=== PATIENT | male | born 1980 | race Hispanic/Latino ===

== ENCOUNTER 2018-06-01 16:07 | Observation (INO) | payer OTHER ==
--- NOTE | 2018-06-01 16:18 | ED PDOC ---
HPI:STROKE - Time Time: 16:13 - Historian Historian: Patient - Chief Complaint Chief Complaint: Numbness, Slurred speech - Onset Date: 06/01/18 Time: 15:50 Onset: Sudden - Location Location: Speech Locate left: Upper extremity - Notes: Notes:: 38 y/o male with a PMHx of Gastritis brought in via EMS for evaluation of a possible stroke. Patient reports of suddenly having difficulty speaking while talking with a coworker just prior to arrival. Patient states he couldn't get any words out and felt like he was drooling instead. Patient reports he then ran to his Boss's office and was then able to make some sounds and told his boss what happened who called 911. Patient notes that while en route he developed numbness to the left upper extremity and hand. Patient denies any focal weakness. Patient notes difficulty speaking lasted about 2 minutes. Patient additionally denies any headaches. PMD: Cannot Recall PMD FMHx: Both parents from substance abuse (Patient denies using any drugs.) NIHSS Stroke Scale - Date/Time Evaluation Performed Date Performed: 06/01/18 Time Performed: 16:00 When Was NIHSS Performed: Code Stroke - How Severe is the Stroke Level of Consciousness: 0=Alert LOC to Questions: 0=Both comments correct LOC to commands: 0=Obeys both correctly Visual: 0=No visual loss Facial: 0=Normal Motor Arm - Left: 0=No drift Motor Arm - Right: 0=No drift Motor Leg - Left: 0=No drift Motor Leg - Right: 0=No drift Limb Ataxia: 0=Absent Sensory: 0=Normal Best Language: 0=No aphasia Dysarthia: 0=Normal articulation Extinction & Inattention (Neglect): 0=Normal, no object rTPA Inclusion/Exclusion - Refusal of Treatment Patient Refused Treatment: No - Inclusion Criteria for Altepase Patient is 18 years or Older: Yes The Clinical Diagnosis of Ischemic Stroke That is Causing a Potentially Disabling Neurological Deficit: No Time of Onset is Well Established to be Less Than 270 Minute Before Treatment Would Begin: Yes Risk/Benefit Discussed With Patient/Family Member Present: No Past Medical History Reviewed: Historical Data, Nursing Documentation, Vital Signs - Medical History PMH: Asthma, Gastritis - Surgical History Surgical History: No Surg Hx - Family History Family History: States: Other Other Family History: Both parents from substance abuse. - Social History Alcohol: Social Drugs: Denies - Home Medications Home Medications: Ambulatory Orders Medication Instructions Recorded Famotidine [Pepcid] 20 mg PO BID #20 tab 11/17/15 - Allergies Allergies/Adverse Reactions: Allergies Allergy/AdvReac Type Severity Reaction Status Date / Time No Known Allergies Allergy Verified 06/01/18 16:10 Review of Systems ROS Statement: Except As Marked, All Systems Reviewed And Found Negative (as per HPI) Neurological: Positive for: Numbness, Change in Speech. Negative for: Weakness, Headache Physical Exam - Reviewed Nursing Documentation Reviewed: Yes Vital Signs Reviewed: Yes - Physical Exam Appears: Positive for: No Acute Distress (but morbidly obese and anxious appearing) Head Exam: Positive for: ATRAUMATIC, NORMOCEPHALIC Skin: Positive for: Warm, Dry, Diaphoresis Eye Exam: Positive for: EOMI, PERRL ENT: Negative for: Pharyngeal Erythema, Tonsillar Exudate Neck: Positive for: Painless ROM, Supple Cardiovascular/Chest: Positive for: Regular Rate, Rhythm. Negative for: Murmur Respiratory: Positive for: Normal Breath Sounds. Negative for: Respiratory Distress Gastrointestinal/Abdominal: Positive for: Soft. Negative for: Tenderness Back: Positive for: Normal Inspection. Negative for: Decreased ROM Extremity: Positive for: Normal ROM. Negative for: Deformity Lymphatic: Negative for: Adenopathy Neurological/Psych: Positive for: Awake, Alert, Oriented (x3), Mood/Affect (Anxious Mood/Affect), cut off [employer] II-XII (intact). Negative for: Motor/Sensory Deficits - Laboratory Results Result Diagrams: 06/01/18 16:20 06/01/18 16:20 - ECG ECG: Positive for: Interpreted By Me, Viewed By Me ECG Rhythm: Positive for: Normal QRS, Normal ST Segment, Sinus Rhythm Rate: 98 Pulse Ox Interpretation: Normal - Critical Care Total Time (In Min): 30 Documented Critical Care: Time excludes all time spent performint seperately billable procedures (at bedside on arrival for potential acute CVA, reevals 30 min and 1 hour later, no recurrence.) Medical Decision Making Medical Decision Making: Time: 1611 Impression: Aphasia, transient Differentials include but not limited to TIA, CVA, Anxiety, electrolyte abnormality and intracranial mass. Plan: -- Code Stroke called on patient's arrival to the ED. -- CT Head w/o Contrast (CODE STROKE) -- B-Type Natriuretic Peptide -- CK-MB -- CMP -- Creatine Phosphokinase -- CRP, High Sensitivity -- EKG -- Lipid Panel -- T3 -- T4 -- Thyroid Stimulating Hormone -- Troponin I -- Vitamin B12 -- PTT -- Prothrombin Time -- CBC with Differentials -- Erythrocyte Sedimentation Rate -- Glucose, POC -- NIHSS PRN -- Neuro Check Q2HX12, Q4HX6, QSHIFT -- Nursing Swallow Screen -- Vital Signs Q2HX12, Q4HX6, QSHIFT -- Urinalysis Accession No. : [id number] Patient Name / ID : BRIGID CAMP / [id number] Exam Date : 06/01/2018 16:14:42 ( Approved ) Study Comment : Sex / Age : M / [id number] Creator : Arnaud Bahena MD Dictator : Arnaud Bahena MD Aviation Maintenance Technician : Captain Waiter/Waitress : Arnaud Bahena MD Approver2 : Report Date : 06/01/2018 16:23:57 My Comment : Date of service: 06/01/2018 PROCEDURE: CT HEAD WITHOUT CONTRAST. HISTORY: slurred speach COMPARISON: None available. TECHNIQUE: Axial computed tomography images were obtained through the head/brain without intravenous contrast. Radiation dose: Total exam DLP = 1267.91 mGy-cm. This CT exam was performed using one or more of the following dose reduction techniques: Automated exposure control, adjustment of the mA and/or kV according to patient size, and/or use of iterative reconstruction technique. FINDINGS: HEMORRHAGE: No intracranial hemorrhage. BRAIN: No mass effect or edema. No atrophy or chronic microvascular ischemic changes. VENTRICLES: Unremarkable. No hydrocephalus. CALVARIUM: Unremarkable. PARANASAL SINUSES: Unremarkable as visualized. No significant inflammatory changes. MASTOID AIR CELLS: Unremarkable as visualized. No inflammatory changes. OTHER FINDINGS: None. IMPRESSION: No acute intracranial pathology. Findings given to Dr. Cortes by Dr. Shearer at 4:23 p.m. on 06/01/2018. Labs unremarkable DW Dr [facility]. Initially recommended CTA head and neck and possible MRI. However pt's body habitus does not allow for either. Pt will be observed for TIA and ASA ordered as discussed. Carotid US and echo to eval for vascular or cardiac origins of thrombus. Scribe Attestation: Documented by Víctor Scales, acting as a scribe Oumar Cortes MD. Provider Scribe Attestation: All medical record entries made by the Scribe were at my direction and personally dictated by me. I have reviewed the chart and agree that the record accurately reflects my personal performance of the history, physical exam, medical decision making, and the department course for this patient. I have also personally directed, reviewed, and agree with the discharge instructions and disposition. Disposition - Clinical Impression Clinical Impression: Aphasia Counseled Patient/Family Regarding: Studies Performed, Diagnosis - Disposition Disposition Time: 17:30 Condition: FAIR - Pt Status Changed To: Hospital Disposition Of: Observation - POA Present On Arrival: None
[2018-06-01 16:21] VITALS: BMI 60.9
--- NOTE | 2018-06-01 16:27 | CT ---
Date of service: 06/01/2018 PROCEDURE: CT HEAD WITHOUT CONTRAST. HISTORY: slurred speach COMPARISON: None available. TECHNIQUE: Axial computed tomography images were obtained through the head/brain without intravenous contrast. Radiation dose: Total exam DLP = 1267.91 mGy-cm. This CT exam was performed using one or more of the following dose reduction techniques: Automated exposure control, adjustment of the mA and/or kV according to patient size, and/or use of iterative reconstruction technique. FINDINGS: HEMORRHAGE: No intracranial hemorrhage. BRAIN: No mass effect or edema. No atrophy or chronic microvascular ischemic changes. VENTRICLES: Unremarkable. No hydrocephalus. CALVARIUM: Unremarkable. PARANASAL SINUSES: Unremarkable as visualized. No significant inflammatory changes. MASTOID AIR CELLS: Unremarkable as visualized. No inflammatory changes. OTHER FINDINGS: None. IMPRESSION: No acute intracranial pathology. Findings given to Dr. Cortes by Dr. Shearer at 4:23 p.m. on 06/01/2018.
[2018-06-01 16:41] LABS: HEMOGLOBIN 13.6 g/dL (12.0-18.0); MEAN CELL VOLUME 77.5 fl (80.0-94.0); MEAN CORPUSCULAR HEMOGLOBIN 25.6 pg (27.0-31.0); MEAN CORPUSCULAR HGB CONC 33.1 g/dL (33.0-37.0); RBC 5.3 Mil/uL (4.40-5.90); RED CELL DISTRIBUTION WIDTH 16.3 % (11.5-14.5); WHITE BLOOD COUNT 10.2 K/uL (4.8-10.8)
[2018-06-01 16:43] LABS: PROTHROMBIN TIME 11.2 Seconds (9.8-13.1)
[2018-06-01 16:45] LABS: PARTIAL THROMBOPLASTIN TIME 35.7 Seconds (25.6-37.1)
[2018-06-01 16:54] LABS: ALB/GLOB RATIO 1.1 (1.0-2.1); ALBUMIN 4.5 g/dL (3.5-5.0); ALT/SGPT 42 U/L (21-72); AST/SGOT 36 U/L (17-59); BLOOD UREA NITROGEN 16 mg/dl (9-20); CALCIUM 9.5 mg/dL (8.4-10.2); GFR NON-AFRICAN AMERICAN > 60; HDL CHOLESTEROL 34 MG/DL (30-70)
[2018-06-01 17:09] LABS: B-TYPE NATRIURETIC PEPTIDE 26.1 pg/ml (0-450); CK-MB 1.29 ng/mL (0.0-3.38); LDL CHOLESTEROL 73 mg/dL (0-129)
[2018-06-01 17:45] LABS: T3 1.85 nmol/L (1.49-2.60)
[2018-06-01 21:08] LABS: SQUAMOUS EPITHIAL 3 /hpf (0-5); URINE BILIRUBIN NEGATIVE (NEGATIVE); URINE BLOOD NEGATIVE (NEGATIVE); URINE CLARITY SLIGHTY-CLOUDY (Clear); URINE COLOR YELLOW (YELLOW); URINE GLUCOSE (UA) NEG (NEGATIVE); URINE LEUKOCYTE ESTERASE NEG Leu/uL (Negative); URINE PROTEIN NEGATIVE (NEGATIVE); URINE UROBILINOGEN 0.2-1.0 mg/dL (0.2-1.0)
[2018-06-01 22:11] VITALS: BP 137/82; PULSE 95; TEMP 98.1; O2SAT 95
--- NOTE | 2018-06-01 23:16 | CP.PCM.PCO ---
Additional Comments - Additional Comments Additional Comments: 38 Year old Male admitted to telemetry this evening for TIA workup. Patient states he feels better and wants to sign out AMA. Patient is awake, alert and oriented x3 and his at bedside. Advised patient to stay in the hospital for further evaluation and treatment for his symptoms. Patient states he will follow up with him PMD, will find a neurologist to f/u with and wants to leave now. Patient understands the consequences of signing out against medical advise including worsening of his symptoms, recurrence of stroke like episodes, SD or other fatal conditions. Patient signed against medical advise form. Both Dr. Mukul Lou and BERNY Guzmán were presents.
[2018-06-01 23:48] VITALS: RESP 20
[2018-06-02] MEDS ORDERED: Enoxaparin 40 mg Syringe SC SCH (09:00)
[2018-06-02] MEDS ORDERED: Enoxaparin 60 mg Syringe SC SCH (09:00)
--- NOTE | 2018-06-02 21:23 | CARD ---
APPROVED REPORT Date of service: 06/01/2018 EKG Measurement Heart [id number] <Conclusion> Normal sinus rhythm Low voltage QRS Borderline ECG
--- NOTE | 2018-06-02 22:22 | CP.PCM.HP ---
History of Present Illness - History of Present Illness History of Present Illness: HPI: 38 y/o morbidly obese male presented to the ED with complaints of transient aphasia while at work, as well as associated numbness to the left arm. CT Head was done, which showed no acute pathology. Neurology was consulted and the pt was then admitted to the telemetry unit. However, several hours after admission, the pt signed out AMA prior to being seen and assessed. The in-house physicians, Dr. Solis and Dr. Lou, spoke to the pt and explained the risks of leaving AMA, given his serious neurologic condition. Despite the instructions, the pt signed out AMA (accompanied by his ), and he agreed to follow up with both, his PCP and a neurologist. Present on Admission - Present on Admission Any Indicators Present on Admission: No Past Patient History - Past Medical History & Family History Past Medical History?: Yes - Past Social History Smoking Status: Former Smoker - CARDIAC Hx Cardiac Disorders: No - PULMONARY Hx Respiratory Disorders: Yes Hx Asthma: Yes - NEUROLOGICAL Hx Neurological Disorder: No - HEENT Hx HEENT Problems: No - RENAL Hx Chronic Kidney Disease: No - ENDOCRINE/METABOLIC Hx Endocrine Disorders: No - HEMATOLOGICAL/ONCOLOGICAL Hx Blood Disorders: No Hx AIDS: No Hx Human Immunodeficiency Virus (HIV): No - INTEGUMENTARY Hx Dermatological Problems: No - MUSCULOSKELETAL/RHEUMATOLOGICAL Hx Musculoskeletal Disorders: No Hx Falls: No - GASTROINTESTINAL Hx Gastrointestinal Disorders: Yes Hx Gastritis: Yes - GENITOURINARY/GYNECOLOGICAL Hx Genitourinary Disorders: No - PSYCHIATRIC Hx Psychophysiologic Disorder: No Hx Substance Use: Yes (Marijuana) - SURGICAL HISTORY Hx Surgeries: No - ANESTHESIA Hx Anesthesia: No Hx Anesthesia Reactions: No Meds Allergies/Adverse Reactions: Allergies Allergy/AdvReac Type Severity Reaction Status Date / Time No Known Allergies Allergy Verified 06/01/18 16:10 Results - Vital Signs Recent Vital Signs: Last Vital Signs Temp 98.1 F 06/01/18 22:10 Pulse 95 H 06/01/18 22:10 Resp 20 06/01/18 22:37 BP 137/82 06/01/18 22:10 Pulse Ox 95 06/01/18 22:10 - Labs Result Diagrams: 06/01/18 16:20 06/01/18 16:20 Labs: Laboratory Results - last 24 hr 06/01/18 16:20 C-React Prot High Sens > 15.00 H Assessment & Plan (1) TIA (transient ischemic attack) Status: Acute
== END 2018-06-01 23:30 | disposition left against medical advice (07) ==
LOC: H.ER 16:07 → H.ERHOLD 17:34 → H.TEL 21:54
PROVIDERS: ADMIT Internal Medicine; ATTEND Internal Medicine
DX: R47.01 Aphasia (principal); R47.81 Slurred speech; R20.0 Anesthesia of skin; E66.01 Morbid (severe) obesity due to excess calories; F12.90 Cannabis use, unspecified, uncomplicated; Z87.891 Personal history of nicotine dependence; K29.70 Gastritis, unspecified, without bleeding; Z68.44 Body mass index [BMI] 60.0-69.9, adult; J45.909 Unspecified asthma, uncomplicated
CPT/HCPCS: 70450; 80053; 80061; 81003; 82550; 82553; 82607; 82948; 83880; 84436; 84443; 84480; 84484; 85027; 85610; 85651; 85730; 86140; 93005; 99283; G0378